=== PATIENT | male | born 1970 | race Caucasian/White ===

== ENCOUNTER 2025-08-13 08:25 | Outpatient (CLI) | payer BC, SELFPAY ==
--- NOTE | ~2025-08-13 | US_ITS ---
US right upper quadrant Indication: elevated LFTs Comparison: None Technique: Acosta-scale and color Doppler images were obtained. Findings: LIVER: Within the left lobe liver left lobe liver simple appearing cystic lesion 6 x 7 x 9 mm. . GALLBLADDER/BILIARY: Unremarkable.No cholelithiais, wall thickening or pericholecystic fluid. No biliary dilatation. CBD 3 mm. [place] sign negative. PANCREAS: Unremarkable. Right Kidney: The right kidney was not imaged. Impression: Nonspecific simple appearing liver Reviewed, dictated and finalized at location P. RER BITUMINOUS PAVING Impression: Nonspecific simple appearing liver
== END 2025-08-13 08:26 | disposition home or self-care (01) ==
DX: R74.01 Elevation of levels of liver transaminase levels (principal)
CPT/HCPCS: 76705